=== PATIENT | female | born 1950 | race Caucasian/White ===

== ENCOUNTER → 2023-12-25 14:10 | Outpatient (REF) | payer MEDICARE, OTHER, SELFPAY | LOC: WDC 14:10 | PROVIDERS: ATTENDING PHYSICIAN Internal Medicine | DX: Z12.31 Encounter for screening mammogram for malignant neoplasm of breast (principal) | CPT/HCPCS: 77063; 77067 ==

== ENCOUNTER → 2024-12-27 12:59 | Outpatient (REF) | payer MEDICARE, OTHER, SELFPAY | LOC: WDC 12:59 | PROVIDERS: ATTENDING PHYSICIAN Internal Medicine | DX: Z78.0 Asymptomatic menopausal state (principal); Z12.31 Encounter for screening mammogram for malignant neoplasm of breast | CPT/HCPCS: 77063; 77067; 77080 ==

== ENCOUNTER → 2025-01-03 07:19 | Outpatient (REF) | payer MEDICARE, OTHER, SELFPAY | LOC: RAD 07:19 | PROVIDERS: ATTENDING PHYSICIAN Internal Medicine | DX: R91.8 Other nonspecific abnormal finding of lung field (principal) | CPT/HCPCS: 71260; Q9967 ==